=== PATIENT | female | born 1990 | race Caucasian/White ===

== ENCOUNTER 2019-12-14 04:53 | Outpatient (CLI) | payer OTHER ==
[2019-12-14 16:44] LABS: SARS-CoV-2 MS2 Positive; SARS-CoV-2 N Gene Negative; SARS-CoV-2 S Gene Negative; SARS-CoV-2 orf1ab Negative
== END 2019-12-14 04:54 | disposition home or self-care (01) ==
LOC: ERS 04:53
PROVIDERS: ATTEND Obstetrics & Gynecology
DX: Z01.812 Encounter for preprocedural laboratory examination (principal); Z11.59 Encounter for screening for other viral diseases
CPT/HCPCS: 87635; U0003

== ENCOUNTER 2019-12-16 05:30 | Inpatient (IN) | payer OTHER ==
[2019-12-16 06:35] VITALS: BMI 38.9
[2019-12-16] MEDS ORDERED: Ondansetron PF 4 MG/2 ML Vial IVP PRN ×3 (06:36→18:32)
[2019-12-16] MEDS ORDERED: Butorphanol Tartrate 1 MG/ML VIAL SLOW IVP PRN (06:36)
[2019-12-16] MEDS ORDERED: Docusate 100 MG CAP PO PRN (06:36)
[2019-12-16] MEDS ORDERED: Lidocaine 1% (PF) 30 ML VIAL SC PRN (06:36)
[2019-12-16] MEDS ORDERED: NS / Oxytocin 40 units/1000ml 1,000 ML IV PRN (06:36)
[2019-12-16] MEDS ORDERED: NS w/ Oxytocin 10 units 500 ML IV SCH (06:36)
[2019-12-16] MEDS ORDERED: HYDROcodone/Acetaminophen 5/325 mg Tablet PO PRN ×4 (06:36→18:32)
[2019-12-16] MEDS ORDERED: hydrALAZINE 20 MG/ML VIAL SLOW IVP PRN ×2 (06:36→18:32)
[2019-12-16] MEDS ORDERED: Promethazine HCl 25 MG/ML VIAL IM PRN ×2 (06:36→09:42)
[2019-12-16] MEDS ORDERED: Ibuprofen 800 MG TAB PO PRN (06:36)
[2019-12-16] MEDS: Lactated Ringer's 1,000 ML IV SCH ×3 (06:46→12:26)
[2019-12-16 07:11] LABS: Hemoglobin 11.6 g/dL (12.0-16.0); Mean Corpuscular HGB CONC 33.3 g/dL (32.0-36.0); Mean Corpuscular Volume 87.3 fL (78.0-98.0); Mean Platelet Volume 9.1 fL (7.4-10.4); Platelet Count 181 thou/uL (130-400); RBC Distribution Width 12.3 % (11.5-14.5); Red Blood Cell (RBC) Count 4.01 mill/uL (4.20-5.40); White Blood Cell (WBC) Count 7.7 thou/uL (4.8-10.8)
[2019-12-16 07:35] LABS: HBSAg Index 0.19 S/CO (0-0.99); Hep B Surf Ag Non-Reactive S/CO (NonReactive); Syphilis Antibody Nonreactive (Nonreactive); Syphilis Antibody Index 0.03 S/CO (<1.00 Non-Reactive)
[2019-12-16] MEDS ORDERED: Fentanyl 4 mcg/Bup 0.1% Cadd 100 ML ONE (09:08)
[2019-12-16] MEDS ORDERED: Bupivacaine/Epinephrine 0.25% 30 ML VIAL ONE (09:37)
[2019-12-16] MEDS ORDERED: Lactated Ringer's 500 ML IV PRN (09:42)
[2019-12-16] MEDS ORDERED: Acetaminophen 325 MG TAB PO PRN (09:42)
[2019-12-16] MEDS ORDERED: diphenhydrAMINE 50 MG/ML VIAL IVP PRN (09:42)
[2019-12-16] MEDS ORDERED: EPHEDRINE 25 MG/5 ML SYRINGE SLOW IVP PRN (09:42)
[2019-12-16] MEDS ORDERED: Naloxone HCl 0.4 mg/ml Vial IVP PRN ×2 (09:42)
[2019-12-16] MEDS ORDERED: Communication Order-Pharmacy FS PRN (09:45)
[2019-12-16] MEDS ORDERED: Fentanyl 4 mcg/Bupivacaine 0.1% Cassette 100 ML EPIDURAL SCH (09:45)
[2019-12-16] MEDS: NS w/ Oxytocin 10 units 500 ML IV SCH (12:26)
[2019-12-16] MEDS ORDERED: Lidocaine 1% (PF) 30 ML VIAL ONE (16:16)
[2019-12-16] MEDS ORDERED: NS / Oxytocin 40 units/1000ml 1,000 ML ONE (16:16)
[2019-12-16] MEDS ORDERED: Misoprostol 200 MCG TAB ONE (16:16)
[2019-12-16] MEDS ORDERED: Carboprost 250 MCG/ML AMP ONE (16:17)
[2019-12-16] MEDS ORDERED: Methylergonovine 0.2 MG/ML VIAL ONE (16:17)
--- NOTE | 2019-12-16 17:26 | PDOC.OPDEL ---
OB Operative/Delivery Note Delivery Dr/Surgeon: Manuel Pre-Delivery Diagnosis: elective induction Procedure/Post Delivery Dx: spontaneous vaginal delivery Weeks gestation: 39 Anesthesia: epidural - Findings A Sex: female - 1 min: 9 - 5 min: 9 - Additional Findings/Plan Placenta delivered: spontaneous Repaired Obstetrical Laceration: 2nd degree Estimated blood loss: 150ml Post delivery plan: routine recovery
[2019-12-16] MEDS ORDERED: diphenhydrAMINE 25 MG CAP PO PRN (18:32)
[2019-12-16] MEDS ORDERED: NS / Oxytocin 40 units/1000ml 1,000 ML IV SCH (18:32)
[2019-12-16] MEDS ORDERED: Preparation H Ointment 28 GM TUBE PR PRN (18:32)
[2019-12-16] MEDS ORDERED: Lanolin Ointment 7 GM TUBE TOP PRN (18:32)
[2019-12-16] MEDS ORDERED: Milk Of Magnesia 30 ML UDCUP PO PRN (18:32)
[2019-12-16] MEDS ORDERED: Bisacodyl 10 MG SUPP PR PRN (18:32)
[2019-12-16] MEDS: Docusate Calcium (SURFAK) 240 MG CAP PO SCH (21:24)
[2019-12-16] MEDS: Ibuprofen 800 MG TAB PO SCH (21:24)
[2019-12-17] MEDS ORDERED: Witch Hazel-Glycerin 1 EACH JAR TOP PRN (03:20)
[2019-12-17] MEDS: Ibuprofen 800 MG TAB PO SCH ×2 (06:31→14:52)
[2019-12-17 08:10] VITALS: TEMP 97.6
[2019-12-17] MEDS: Ferrous Sulfate 325 MG TAB PO SCH ×2 (08:56→16:32)
[2019-12-17] MEDS: NS w/ Oxytocin 10 units 500 ML IV SCH (08:56)
[2019-12-17] MEDS: Lactated Ringer's 1,000 ML IV SCH ×2 (08:56→14:43)
[2019-12-17] MEDS: Docusate Calcium (SURFAK) 240 MG CAP PO SCH (08:58)
[2019-12-17] MEDS ORDERED: Prenatal Vitamin 1 TAB PO SCH (09:00)
[2019-12-17] MEDS ORDERED: Adacel (T-DAP) 0.5 ML SYRINGE IM ONE (09:00)
--- NOTE | 2019-12-17 11:42 | PDOC.PP ---
Post Progress Note Post Day #: 1 Subjective: doing well, no concerns, minimal bleeding and discomfort PO intake tolerated: yes Flatus: yes Ambulation: yes Vital Signs (12 hours) Temp Pulse Resp BP Pulse Ox 12/17/19 09:00 96 12/17/19 08:09 97.6 F 72 20 111/59 L 96 12/17/19 00:30 98.1 F 85 18 121/60 Weight Weight 220 lb - Physical Examination Respiratory: non-labored breathing Abdominal: no distention Fundus firm & at: below umb Psychiatric: A&Ox3, normal affect Result Diagrams: 12/16/19 06:43 Additional Labs: Post Labs Blood Type A POSITIVE 12/16/19 07:47 Hep Bs Antigen Non-Reactive S/CO (NonReactive) 12/16/19 06:43 (1) 40 weeks gestation of Code(s): Z3A.40 - 40 WEEKS GESTATION OF Status: Acute (2) Hypothyroidism affecting Code(s): O99.280 - ENDO, NUTRITIONAL AND METAB DISEASES COMP PREG, UNSP TRI; E03.9 - HYPOTHYROIDISM, UNSPECIFIED Status: Acute - Assessment/Plan PPD1 doing well, would like DC today if possible
[2019-12-17 11:54] VITALS: BP 136/61
== END 2019-12-17 20:30 | disposition home or self-care (01) | DRG 807 ==
LOC: L&D 05:54 → 3SW 20:33
PROVIDERS: ADMIT Obstetrics & Gynecology; ATTEND Obstetrics & Gynecology
PROC: 10E0XZZ Delivery of Products of Conception, External Approach (ICD-10-PCS; principal; 2019-12-16)
PROC: 0KQM0ZZ Repair Perineum Muscle, Open Approach (ICD-10-PCS; 2019-12-16)
PROC: 10907ZC Drainage of Amniotic Fluid, Therapeutic from Products of Conception, Via Natural or Artificial Opening (ICD-10-PCS; 2019-12-16)
PROC: 3E033VJ Introduction of Other Hormone into Peripheral Vein, Percutaneous Approach (ICD-10-PCS; 2019-12-16)
DX: O99.284 Endocrine, nutritional and metabolic diseases complicating childbirth (principal); Z37.0 Single live birth; Z3A.40 40 weeks gestation of pregnancy; E03.9 Hypothyroidism, unspecified; O70.1 Second degree perineal laceration during delivery; Z79.899 Other long term (current) drug therapy
CPT/HCPCS: 36415; 51702; 85027; 86780; 86850; 86900; 86901; 87340; 87635; J2001; J2210; J2590; J3490; U0003